=== PATIENT | female | born 1980 ===

== ENCOUNTER 2024-03-31 09:47 | Emergency (ER) | payer MEDICARE ==
[~2024-03-31] VITALS: Ht 160 cm; Wt 72.6 kg
[2024-03-31 10:09] VITALS: BP 179/98
[2024-03-31 12:11] VITALS: BP 179/98
[2024-03-31] MEDS ORDERED: DOXYCYCLINE100 MG PO (12:20)
[2024-03-31] MEDS ORDERED: TRADJENTA5 MG PO (19:20)
[2024-03-31] MEDS ORDERED: PAROXETINE10 MG PO (19:20)
== END 2024-03-31 12:44 | disposition left against medical advice (07) ==
LOC: ED 09:47
DX: R53.83 Other fatigue (principal); R68.83 Chills (without fever); I12.0 Hypertensive chronic kidney disease with stage 5 chronic kidney disease or end stage renal disease; E11.22 Type 2 diabetes mellitus with diabetic chronic kidney disease; N18.6 End stage renal disease; F41.9 Anxiety disorder, unspecified; Z99.2 Dependence on renal dialysis; Z20.822 Contact with and (suspected) exposure to COVID-19; Z53.29 Procedure and treatment not carried out because of patient's decision for other reasons

== ENCOUNTER 2024-03-31 16:00 | Emergency (ER) | payer MEDICARE ==
[~2024-03-31] VITALS: Ht 160 cm; Wt 67.0 kg
[2024-03-31] VITALS (8 sets, daily range): BP systolic 134–172; BP diastolic 64–96
[~2024-03-31 16:00] MED LIST: DOXYCYCLINE100 MG PO
[2024-03-31] MEDS ORDERED: LORazepam 1 MG/TAB PO ONE (16:35)
[2024-03-31 17:51] LABS: EOS% 2.6 % (0-8); HEMATOCRIT 30.1 % (37.0-47.0); HEMOGLOBIN 8.6 g/dl (12.0-16.0); IMMATURE GRANULOCYTES 0.4 % (0.0-5.0); LYMPH% 32.1 % (15-41); MEAN CELL VOLUME 111.9 fL CALC (80.0-100.0); MEAN CORPUSCULAR HGB CONC 28.6 g/dL CAL (32.0-36.0); MONO% 8.9 % (2-13); NEUT# 5.67 thou/uL (2.00-7.15); RED BLOOD COUNT 2.69 mill/uL (4.20-5.60); RED CELL DISTRI WIDTH 14.5 % (11.5-15.5)
[2024-03-31 18:00] LABS: ALBUMIN 4.1 g/dL (3.2-5.0); BILIRUBIN, TOTAL 0.6 mg/dL (0.02-1.3); TOTAL PROTEIN 7.3 g/dL (6.3-8.2)
[2024-03-31 18:03] LABS: CREATININE 10.1 mg/dL (0.5-1.0); POTASSIUM 8.9 mmol/l (3.5-5.1)
[2024-03-31] MEDS ORDERED: PAROXETINE10 MG PO (19:20)
[2024-03-31] MEDS ORDERED: TRADJENTA5 MG PO (19:20)
== END 2024-03-31 18:12 | disposition left against medical advice (07) ==
LOC: ED 16:00
PROVIDERS: Family Medicine
DX: E87.5 Hyperkalemia (principal); I12.0 Hypertensive chronic kidney disease with stage 5 chronic kidney disease or end stage renal disease; E11.22 Type 2 diabetes mellitus with diabetic chronic kidney disease; N18.6 End stage renal disease; F41.9 Anxiety disorder, unspecified; Z99.2 Dependence on renal dialysis; Z72.0 Tobacco use; Z53.29 Procedure and treatment not carried out because of patient's decision for other reasons